=== PATIENT | female | born 1945 ===

== ENCOUNTER 2023-06-18 06:51 | Day surgery (SDC) | payer OTHER, SELFPAY ==
[2023-06-12 09:57] VITALS: BMI 26.9
[2023-06-12 10:33] LABS: % Basophils 0.4 % (0-2); % Eosinophils 1.5 % (0-6); % Immature Granulocytes 0.2 % (0-0.5); % Lymphocytes 31.9 % (20.5-51.1); % Monocytes 7.6 % (1.7-9.3); % Neutrophils 58.4 % (42.2-75.2); Absolute Eosinophils 0.1 10^3/uL (0-0.7); Absolute Lymphocytes 1.5 10^3/uL (1.2-3.4); Absolute Monocytes 0.4 10^3/uL (0.1-0.6); Absolute Neutrophils 2.7 10^3/uL (1.4-6.5); Hematocrit 39.8 % (37.0-47.0); Hemoglobin 13.1 g/dL (12.0-16.0); Mean Corp Hgb Conc. 32.9 g/dL (33.0-37.0); Mean Corpuscular Hgb 28.3 pg (27.0-31.0); Mean Platelet Volume 9.4 fL (7.4-10.4); Nucleated Red Blood Cells % 0 %; Platelet Count 216 10^3/uL (130-400); Red Blood Cell Count 4.63 10^6/uL (4.20-5.40); Red Cell Dist. Width 12.3 % (11.5-14.5); Urine Albumin Negative (Neg - Trace); Urine Bilirubin Negative (Negative); Urine Character Clear (Clear); Urine Color Yellow; Urine Glucose Negative (Negative); Urine Ketone Negative (Negative); Urine Leukocyte Trace (Negative); Urine Nitrite Negative (Negative); Urine Occult Blood Negative (Negative); Urine Specific Gravity 1.005 (<1.030); Urine Urobilinogen Negative (Neg - 1+); White Blood Cell Count 4.6 10^3/uL (4.8-10.8)
[2023-06-12 10:40] LABS: Urine Bacteria Few (Negative); Urine Red Blood Cell 0-2 /HPF (0-2); Urine White Cell 0-2 /HPF (0-5)
[2023-06-12 10:41] LABS: APTT 31.7 Sec (23.4-35.0)
[2023-06-12 11:25] LABS: Blood Urea Nitrogen 23 mg/dl (7-17); Calcium 9.5 mg/dl (8.4-10.2); Carbon Dioxide 26 mmol/L (22-30); Chloride 104 mmol/L (98-107); Estimated Creatinine Clearance 49 ml/min; Glucose 89 mg/dl (70-99); Potassium 4.3 mmol/L (3.5-5.1); Sodium 137 mmol/L (135-145); eGFR > 60.00
[2023-06-18] VITALS (7 sets, daily range): BP systolic 10–163; BP diastolic 50–79; BMI 26.9
[2023-06-18] MEDS: TYLENOL 1000 MG PO (10:09)
[2023-06-18] MEDS: NORMOSOL-R 1000 IV (10:19)
[2023-06-18 10:36] LABS: Urine Albumin Negative (Neg - Trace); Urine Bilirubin Negative (Negative); Urine Character Clear (Clear); Urine Color Yellow; Urine Glucose Negative (Negative); Urine Ketone Negative (Negative); Urine Leukocyte Negative (Negative); Urine Nitrite Negative (Negative); Urine Occult Blood Negative (Negative); Urine Specific Gravity 1.005 (<1.030); Urine Urobilinogen Negative (Neg - 1+)
[2023-06-18] MEDS: Pyridium 200 MG PO (13:07)
== END 2023-06-18 13:29 | disposition home or self-care (01) ==
LOC: SDS 06:51
PROVIDERS: ATTENDING PHYSICIAN Urology; FAMILY PHYSICIAN Internal Medicine
DX: R31.0 Gross hematuria (principal); Z87.440 Personal history of urinary (tract) infections; N32.89 Other specified disorders of bladder
CPT/HCPCS: 52000; 36415; 80048; 81003; 81015; 85025; 85610; 85730; 87086; 93005

== ENCOUNTER 2024-11-07 17:59 | Emergency (ER) | payer OTHER, SELFPAY ==
[2024-11-07 18:06] VITALS: BP 185/96
[2024-11-07 18:26] LABS: Hematocrit 39.6 % (37.0-47.0); Hemoglobin 13.5 g/dL (12.0-16.0); Mean Corp Hgb Conc. 34.1 g/dL (33.0-37.0); Mean Corpuscular Volume 84.1 fL (81.0-99.0); Nucleated Red Blood Cells % 0 %; Platelet Count 199 10^3/uL (130-400); Red Cell Dist. Width 12.6 % (11.5-14.5)
[2024-11-07 18:46] LABS: ALT (SGPT) 35 U/L (0-35); AST (SGOT) 28 U/L (14-36); Albumin 4.9 g/dl (3.5-5.0); Alkaline Phosphatase 76 U/L (38-126); Blood Urea Nitrogen 15 mg/dl (7-17); Calcium 9.9 mg/dl (8.4-10.2); Carbon Dioxide 25 mmol/L (22-30); Chloride 103 mmol/L (98-107); Glucose 102 mg/dl (70-99); Potassium 4.1 mmol/L (3.5-5.1); Sodium 136 mmol/L (135-145); Total Protein 7.7 g/dl (6.3-8.2); eGFR > 60.00
[2024-11-07 18:53] LABS: Troponin I < 0.012 ng/ml
[2024-11-07 19:20] VITALS: BP 172/86
--- NOTE | 2024-11-07 19:39 | ED.GENMED ---
History of Present Illness
General
Chief Complaint: Chest Pain
Time Seen by Provider: 11/07/24 19:07
History of Present Illness
History of Present Illness:
79-year-old female with history of hypertension presenting to the emergency department for palpitations. Patient reports that she has been feeling palpitations on and off in the past, however today was more persistent and lasting throughout the
day. She feels like her heart is skipping a beat. She denies associated chest pain. She has had intermittent pain in the left shoulder, none presently. Denies any significant cardiac history in the past. Denies any exertional component to her
symptoms. Denies any difficulty breathing. Denies any recent fever or illness. Denies abdominal pain. Denies any swelling to her lower extremities. Notes compliance with her blood pressure medications. Denies additional acute medical complaints
Phy Exam
Physical Exam
Physical Exam:
General: Well-appearing, no clinical signs of dehydration, nontoxic and in no acute distress
HEENT: protecting airway
Neck: appears supple
CV: Normal heart rate, regular rhythm
Resp: No accessory muscle use, no increased work of breathing, lungs clear to auscultation bilaterally
Abd: No distention
Extremities: No deformities, no swelling
Neuro: alert, no focal neurologic deficit
: deferred
Rectal: deferred
Psych: Normal affect
Skin: Intact
Scores
Heart Score for Chest Pain Patients
STEMI patient?: No
History: Slightly or Non-Suspicious
ECG: Normal
Age: >/= 65 years
Risk Factors: 1 or 2 Risk Factors
Troponin: </= Normal Limit
Heart Score for Chest Pain Patients: 3
Heart Score Risk: 2.5% MACE over next 6 weeks
Course
Orders/Labs/Results
Orders:
Orders
11/07/24 18:00
Electrocardiogram (*1) Urgent
Reason for Study: Palpitations
EKG- Treatment ONCE
11/07/24 18:16
CMP [Comprehensive Metabolic Panel] Urgent
Complete Blood Count/With Diff Urgent
Troponin I Urgent
Abnormal Lab Results
11/07/24
18:16
Glucose 102 H mg/dl
(70-99)
Total Bilirubin 1.4 H mg/dl
(0.2-1.3)
11/07/24 18:16
11/07/24 18:16
Vital Signs
Initial and Last Documented VS:
Initial Vital Signs
Temp Pulse Resp BP Pulse Ox
98.3 F 74 18 185/96 97
11/07/24 18:06 11/07/24 18:06 11/07/24 18:06 11/07/24 18:06 11/07/24 18:06
Last Documented Vital Signs
Temp Pulse Resp BP Pulse Ox
98.3 F 61 11 172/86 98
11/07/24 18:06 11/07/24 19:45 11/07/24 19:45 11/07/24 19:20 11/07/24 19:46
MDM/Problems Addressed
MDM/Problems Addressed:
79-year-old female with history of high blood pressure presenting to the emergency department for palpitations. Vital signs on arrival significant for high blood pressure.
On exam patient is resting comfortably, no acute distress or discomfort. Does that she is still feeling some palpitations intermittently, however denies any pain. EKG obtained on arrival, nonischemic, no arrhythmia. Patient placed on cardiac
monitor, heart rate in the 60s, no significant findings or again any concern for arrhythmia. No acute ischemic abnormality or concern for ACS. Labs obtained prior to my assessment, normal electrolyte panel, undetectable troponin. At this time,
without pressing concern for acute serious arrhythmia or pathology, however do feel patient warrants close interval follow-up with a crm dynamics developer including additional testing such as a Holter monitor for further assessment of potential underlying
arrhythmia. Suspect the patient may be having PACs or PVCs. She already made an appoint with her crm dynamics developer for Sunday. Strict return precautions communicated and patient verbalized understanding
*Pulse Oximetry
SaO2: 98
Oxygen Mode of Delivery: Room air
Patient hypoxic: no
*EKG
Interpreted by ED Provider?: Yes
EKG Intrepretation Date: 11/07/24
EKG Intrepretation Time: 19:41
Interpretation: normal
Comparison EKG: no changes (06/12/23)
Heart Rate: 73
Rate: normal
Rhythm: sinus
Mercedes: normal axis
Interval: normal interval
QRS Pattern: normal QRS
Ischemia: no ischemia
*Critical Care Note
Total Time (30-74mins, 75-104mins- exclusive of procedures): Not Applicable
ED Attending Note
-
Portions of this chart may have been created with voice recognition software.� Occasional wrong word or��sound alike� substitutions may have occurred due to the inherent limitations of voice recognition software.
Discharge Plan
Departure
Patient Disposition: Home (Routine Discharge)
Date of Disposition: 11/07/24
Time of Disposition: 19:44
Patient with high blood pressure during this ER visit?: Yes
Condition: Good
Discharge Problem:
Palpitations
Instructions: Palpitations - ED (DC), BLOOD PRESSURE
Prescriptions:
No Action
Adult Multivitamin Gummies
1 gum PO DAILY
anastrozole 1 mg Tablet
1 mg PO DAILY
atorvastatin 20 mg Tablet
20 mg PO DAILY
valsartan 80 mg Tablet
80 mg PO DAILY
ascorbic acid (vitamin C) [Vitamin C] 500 mg Tablet
500 mg PO DAILY
dicyclomine 10 mg Capsule
10 mg PO PRN PRN (Reason: diverticuliosis)
cholecalciferol (vitamin D3) [Vitamin D3] 25 mcg (1,000 unit) Tablet
25 mcg PO DAILY
Turmeric Tea
1 unit PO DAILY
psyllium
3 cap PO DAILY
Referrals:
Isaac Lopez MD [Family Provider, Urology]
Nadine Santos DO [Active, Cardiology]
Activity Restrictions/Additional Instructions:
You were seen in the emergency department for palpitations
You were found to have reassuring EKG and laboratory analysis. We recommend follow-up with a crm dynamics developer for additional testing
Please follow-up closely with your primary care physician.
Return to the emergency department for any worsening of your symptoms, or any development of chest pain, difficulty breathing, abdominal pain with persistent vomiting and inability to tolerate food or liquid by mouth (concern for dehydration),
weakness, headache or confusion, fever greater than 100.4, or any additional symptoms that are concerning to you.
Thank you for choosing [facility] [place].
Interventions
Interventions:
*Risk Screen - Suicide Last Done: 11/07/24 19:31
*General Assessment Last Done: 11/07/24 19:31
*Neglect/Abuse Screening Last Done: 11/07/24 19:31
*ED- Fall Risk Assessment Last Done: 11/07/24 19:31
*ED COVID-19 Vaccine History Last Done: 11/07/24 19:31
*Nursing Disposition Last Done: 11/07/24 19:57
ED- Cardiac Assessment Last Done: 11/07/24 19:30
Discharge Date and Time
Discharge Date/Time: 11/07/24 19:57
Print Language: [id number]
== END 2024-11-07 19:57 | disposition home or self-care (01) ==
LOC: EMR 17:59
PROVIDERS: Physician Assistant Medical; EMERGENCY PHYSICIAN Student in an Organized Health Care Education/Training Program; FAMILY PHYSICIAN Urology
DX: R00.2 Palpitations (principal); I10 Essential (primary) hypertension
CPT/HCPCS: 99284; 80053; 84484; 85025; 93005